=== PATIENT | male | born 1960 | race Caucasian/White ===

== ENCOUNTER 2024-07-07 13:10 | Emergency (ER) | payer MEDICARE, SELFPAY ==
[2024-07-07 13:23] VITALS: BP 123/85
[2024-07-07 17:33] VITALS: BP 122/78
--- NOTE | 2024-07-07 19:37 | ED.GENMED ---
History of Present Illness
General
Chief Complaint: Musculo-Skeletal Complaint
Source: patient
Exam Limitations: none
Time Seen by Provider: 07/07/24 15:11
Nursing documentation reviewed up to this point in time: agreed with
History of Present Illness
History of Present Illness:
Patient is a 64-year-old male that slipped today around 6 AM outside at work. Landing on his left shoulder. He is unsure if he hit his head denies loss of conscious but does have a headache feels sore to the neck area and left shoulder area.
Patient reports he has pain with lifting his left arm due to injury. He has not blood thinners. He denies any nausea vomiting.
Past History
Past History
ED Past Medical History: Asthma, HTN, Hypercholesterolemia and Other (PNA); Negative CAD or IDDM
ED Past Surgical History: Orthopedic
Social History
Tobacco: Former smoker
Alcohol: Occasional
Drug: Marijuana
Personal:
Living: with family
Employment: Employed (works in [employer])
Family History
Family History: Hypertension; Negative Early CAD
Review of Systems
Review of Systems
Allergies reviewed?: Yes
All Other Systems: ROS reviewed and negative except as documented in HPI and ROS
Constitutional: Reports no symptoms; Denies fever
Respiratory: Reports no symptoms
Cardiac: Reports no symptoms
ABD/GI: Reports no symptoms; Denies nausea or vomiting
Musculoskeletal: Reports neck pain and other (left shoulder pain )
Skin: Reports no symptoms
Neurological: Reports headache and other ( no LOC )
Psychiatric: Reports no symptoms
Phy Exam
General Physical Exam
General Presentation: no apparent distress
General age: appears stated age
General Skin: warm and dry
General Habitus: normal
General Mental: alert
General Hydration: appears well hydrated
Eye Exam
Eye Exam: PERRL and EOMI
Eye Exam General: PERRL: bilateral and EOM intact: bilateral
Pupil Exam: Bilateral: round and reactive
Cardiovascular Exam
Cardiovascular Exam: regular rate/rhythm, no murmur and normal peripheral pulses
Pulmonary Exam
Pulmonary Exam: lungs clear and no respiratory distress
Neurological Exam
Neurological Exam: alert, oriented x3, no motor deficits and no sensory deficits
Musculoskeletal Exam
Musculoskeletal Exam: other (No obvious head injury on exam mildly tender throughout the neck, normal inspection to left shoulder however tender throughout the proximal shoulder and pain with abduction strong distal pulses normal distal sensation
normal cap refill, full range of motion to lower extremities bilaterally)
Skin Exam
Skin Exam: normal color and warm/dry
Psychiatric Exam
Psychiatric Exam: normal mood/affect
Course
Orders/Labs/Results
Orders:
Orders
07/07/24 13:25
Clavicle, Left Complete CR [CR Clavicle - Left Complete ] Urgent
Comment:
Reason For Exam: pain
Shoulder, Left, Trauma CR [CR Shoulder, Trauma - Left] Urgent
Comment:
Reason For Exam: pain
07/07/24 13:26
Cervical Collar- Treatment ONCE
Collar Type: Soft Cervical Collar
CR Spine - 1 View Stat
Reason For Exam: pain
07/07/24 15:41
CT Cervical Spine W/o Iv Contr Urgent
Comment:
Reason For Exam: trauma
CT Head W/o Iv Contrast Urgent
Comment:
Reason For Exam: trauma
07/07/24 19:39
Ibuprofen [Motrin] 600 mg PO NOW STA
Vital Signs
Initial and Last Documented VS:
Initial Vital Signs
Temp Pulse Resp BP Pulse Ox
98.7 F 69 16 123/85 99
07/07/24 13:23 07/07/24 13:23 07/07/24 13:23 07/07/24 13:23 07/07/24 13:23
Last Documented Vital Signs
Temp Pulse Resp BP Pulse Ox
98.7 F 78 16 122/78 98
07/07/24 13:23 07/07/24 17:33 07/07/24 17:33 07/07/24 17:33 07/07/24 17:33
MDM/Problems Addressed
Differential Diagnosis Includes:
Not limited to head injury, cervical strain versus fracture less likely, shoulder contusion versus shoulder sprain strain versus rotator cuff injury
MDM/Problems Addressed:
Patient's status post fall questionable head injury does complain of a headache left neck pain and shoulder pain. He is on blood thinners. CT head and cervical spine are negative for acute injury. Shoulder negative for fracture osteoarthritis of
left AC joint. Patient given sling discussed ice and outpatient Ortho follow-up for continued shoulder pain. Likely sprain strain versus contusion rotator cuff injury.
*Radiology
Radiology exam reviewed: radiology read reviewed
*Pulse Oximetry
Patient hypoxic: no
*Critical Care Note
Total Time (30-74mins, 75-104mins- exclusive of procedures): Not Applicable
ED Attending Note
-
Portions of this chart may have been created with voice recognition software.� Occasional wrong word or��sound alike� substitutions may have occurred due to the inherent limitations of voice recognition software.
Discharge Plan
Departure
Patient Disposition: Home (Routine Discharge)
Date of Disposition: 07/07/24
Time of Disposition: 20:43
Patient with high blood pressure during this ER visit?: No
Condition: Fair
Covid-19: Not Applicable
Discharge Problem:
Contusion, Cervical muscle strain
Instructions: Cervical Sprain ED, Contusion
Prescriptions:
No Action
venlafaxine 75 MG capsule,extended release 24hr
75 mg PO DAILY
ibuprofen 800 MG tablet
800 mg PO Q6HPRN PRN (Reason: pain)
albuterol sulfate [Proventil HFA] 90 MCG/PUFF HFA aerosol inhaler
1 puff inhalation Q4HPRN PRN (Reason: shortness of breath) Qty: 1 0RF
albuterol sulfate 2.5 MG/3 ML solution for nebulization
2.5 mg inhalation R Q4HPRN PRN (Reason: Cough, wheezing. ) Qty: 1 0RF
ibuprofen 600 MG tablet
600 mg PO Q6 PRN (Reason: pain) Qty: 20 0RF
sulfamethoxazole-trimethoprim 1 TABLET tablet
1 tab PO BID
Patient Comments:
FOR TEN DAYS
valsartan [Diovan] 160 MG tablet
160 mg PO DAILY
hydrocodone-acetaminophen 1 EACH tablet
1 tab PO Q6HPRN PRN (Reason: PAIN)
hydrocodone-acetaminophen 1 TABLET tablet
1 tab PO Q4HPRN PRN (Reason: Pain) Qty: 8 0RF
doxycycline monohydrate 100 mg capsule
100 mg PO BID Qty: 20 0RF
Referrals:
Ricky Feliciano MD [Active] -
NONE,* [Family Provider] -
Activity Restrictions/Additional Instructions:
As discussed your CAT scan of your head was negative, your CT cervical spine was negative for fracture however does have degenerative disease. Your x-raysof your shoulder and clavicle were negative. Ice the affected area for the next 24 hours.
You may take ibuprofen every 8 hours. Follow-up with orthopedics as needed return if any worsening of symptoms.
Interventions
Interventions:
*Risk Screen - Suicide Last Done: 07/07/24 13:23
*General Assessment Last Done: 07/07/24 15:57
*Neglect/Abuse Screening Last Done: 07/07/24 13:23
*ED COVID-19 Vaccine History Last Done: 07/07/24 15:57
*Nursing Disposition Last Done: 07/07/24 21:07
ED-Musculoskeletal Assessment Last Done: 07/07/24 15:57
Discharge Date and Time
Discharge Date/Time: 07/07/24 21:08
Print Language: FRENCH
[2024-07-07] MEDS: MOTRIN 600 MG PO (21:00)
--- NOTE | 2024-07-07 21:08 | EDRN ---
Sling applied prior to d/c.
== END 2024-07-07 21:08 | disposition home or self-care (01) ==
LOC: EMR 13:10
PROVIDERS: EMERGENCY PHYSICIAN Student in an Organized Health Care Education/Training Program
DX: S16.1XXA Strain of muscle, fascia and tendon at neck level, initial encounter (principal); M25.512 Pain in left shoulder; R51.9 Headache, unspecified; W01.0XXA Fall on same level from slipping, tripping and stumbling without subsequent striking against object, initial encounter; I10 Essential (primary) hypertension; J45.909 Unspecified asthma, uncomplicated; E78.00 Pure hypercholesterolemia, unspecified; Z87.891 Personal history of nicotine dependence
CPT/HCPCS: 99284; 70450; 72020; 72125; 73000; 73030

== ENCOUNTER → 2024-07-31 08:43 | Outpatient (REF) | payer MEDICARE, SELFPAY | LOC: MRI 3T 08:43 | PROVIDERS: ATTENDING PHYSICIAN Orthopaedic Surgery Hand Surgery; FAMILY PHYSICIAN Family Medicine | DX: S46.012A Strain of muscle(s) and tendon(s) of the rotator cuff of left shoulder, initial encounter (principal); W19.XXXA Unspecified fall, initial encounter | CPT/HCPCS: 73221 ==

== ENCOUNTER → 2024-08-26 06:38 | Outpatient (REF) | payer MEDICARE, SELFPAY ==
[2024-08-26 07:20] LABS: % Basophils 1.9 % (0-2); % Eosinophils 2.5 % (0-6); % Immature Granulocytes 0.2 % (0-0.5); % Lymphocytes 30.8 % (20.5-51.1); % Monocytes 7.3 % (1.7-9.3); % Neutrophils 57.3 % (42.2-75.2); Absolute Basophils 0.1 10^3/uL (0-0.2); Absolute Eosinophils 0.1 10^3/uL (0-0.7); Absolute Lymphocytes 1.6 10^3/uL (1.2-3.4); Absolute Monocytes 0.4 10^3/uL (0.1-0.6); Hematocrit 38.7 % (39.0-52.0); Hemoglobin 13.4 g/dL (13.0-18.0); Mean Corp Hgb Conc. 34.6 g/dL (33.0-37.0); Mean Corpuscular Volume 86.6 fL (80.0-94.0); Mean Platelet Volume 9.9 fL (7.4-10.4); Nucleated Red Blood Cells % 0 % (-); Platelet Count 255 10^3/uL (130-400); Red Blood Cell Count 4.47 10^6/uL (4.70-6.10); Red Cell Dist. Width 13.2 % (11.5-14.5); White Blood Cell Count 5.2 10^3/uL (4.8-10.8)
[2024-08-26 07:48] LABS: Urine Albumin Negative (Neg - Trace); Urine Bilirubin Negative (Negative); Urine Character Clear (Clear); Urine Color Yellow; Urine Glucose Negative (Negative); Urine Ketone Negative (Negative); Urine Leukocyte Negative (Negative); Urine Nitrite Negative (Negative); Urine Occult Blood 1+ (Negative); Urine Urobilinogen Negative (Neg - 1+)
[2024-08-26 07:56] LABS: ALT (SGPT) 31 U/L (0-50); AST (SGOT) 21 U/L (17-59); Albumin 3.9 g/dl (3.5-5.0); Alkaline Phosphatase 93 U/L (38-126); Blood Urea Nitrogen 18 mg/dl (9-20); Calcium 9.1 mg/dl (8.4-10.2); Carbon Dioxide 30 mmol/L (22-30); Chloride 102 mmol/L (98-107); Glucose 97 mg/dl (70-99); HDL Cholesterol 57 mg/dl; LDL Cholesterol, Calculated 142 mg/dl; Sodium 139 mmol/L (135-145); Total Bilirubin 0.6 mg/dl (0.2-1.3); Total Cholesterol 211 mg/dl (50-199); Total Protein 6.4 g/dl (6.3-8.2); Triglyceride 63 mg/dl (10-149); Very Low Density Lipoprotein 12 mg/dl (0-30); eGFR > 60.00
[2024-08-26 08:12] LABS: Potassium 3.4 mmol/L (3.5-5.1)
[2024-08-26 08:19] LABS: PSA, Total - Screen 1.43 ng/ml (0.0-4.0)
[2024-08-26 08:24] LABS: Urine Mucus Moderate
[2024-08-26 08:25] LABS: Urine Bacteria Few (Negative); Urine Hyaline Cast 0-2 /LPF (0-2); Urine Squamous Cell 0-2 /LPF (Few); Urine White Cell 0-2 /HPF (0-5)
== END ==
LOC: REG 06:38
PROVIDERS: ATTENDING PHYSICIAN Family Medicine
DX: N52.9 Male erectile dysfunction, unspecified (principal); Z76.89 Persons encountering health services in other specified circumstances; Z01.818 Encounter for other preprocedural examination; Z13.220 Encounter for screening for lipoid disorders; Z12.5 Encounter for screening for malignant neoplasm of prostate
CPT/HCPCS: 36415; 80053; 80061; 81003; 81015; 85025; G0103